=== PATIENT | male | born 1980 | race Two or more races ===

== ENCOUNTER → 2022-12-14 | Emergency (ER) | payer OTHER ==
[~2022-12-14] VITALS: Ht 180.3 cm; Wt 72.0 kg
[~2022-12-14] MED LIST: ANUSOL-HC25 MG PR
== END ==
LOC: ED 14:02
DX: K64.4 Residual hemorrhoidal skin tags (principal); Z88.0 Allergy status to penicillin
CPT/HCPCS: 36415; 80053; 81003; 85025; 85610; 85730; 86850; 86900; 86901; 96374; 99283-25; J2405; J7121